=== PATIENT | female | born 1985 | race Two or more races ===

== ENCOUNTER 2018-02-01 15:07 | Emergency (ER) | payer OTHER ==
[~2018-02-01] VITALS: Ht 154.9 cm; Wt 94.3 kg
[2018-02-01 20:31] VITALS: BP 132/77
== END 2018-02-01 20:36 | disposition home or self-care (01) ==
LOC: ER 15:07
DX: S46.911A Strain of unspecified muscle, fascia and tendon at shoulder and upper arm level, right arm, initial encounter (principal); S66.911A Strain of unspecified muscle, fascia and tendon at wrist and hand level, right hand, initial encounter; X50.0XXA Overexertion from strenuous movement or load, initial encounter; Y93.89 Activity, other specified; Y92.89 Other specified places as the place of occurrence of the external cause; Y99.8 Other external cause status
CPT/HCPCS: 73030; 73100